=== PATIENT | female | born 1955 | race Caucasian/White ===

== ENCOUNTER 2018-02-07 21:18 | Observation (INO) ==
[2018-02-07] MEDS ORDERED: Nitroglycerin 0.4 MG TAB.SUBL SL PRN (21:45)
--- NOTE | 2018-02-07 21:54 | Emergency Department Note ---
Disposition Clinical Impression: Acute electrocardiogram changes Chest pain Qualifiers: Chest pain type: unspecified Qualified Code(s): R07.9 - Chest pain, unspecified Disposition: Admitted As Inpatient Condition: Undetermined Referrals: Odalis Kim MD [Primary Care Provider] - Forms: ED Satisfaction Letter, Work/School Release Chest Pain HPI - General Chief Complaint: ED General Medical Stated Complaint: "High BP/Headache" Time Seen by Provider: 02/07/18 21:25 Source: patient, family Mode of arrival: ambulatory Limitations: no limitations Vital Signs Reviewed: Yes Nursing Notes Reviewed: Yes - History of Present Illness HPI Narrative: 62-year-old female with history of poorly controlled hypertension, hyperlipidemia, arrives to the emergency department complaining of mild headache , chest pressure and hypertension. The patient states that she had a recent flareup of her irritable bowel syndrome and she states any time this happens she becomes hypertensive and has to come to the hospital to get this addressed. The patient states that she started developing chest discomfort this evening. She decided to come into the emergency department after she developed the chest pressure. Patient does have a mild headache but states this is not uncommon when she does have hypertensive episodes. Patient denies any shortness of breath or any other symptoms associated with it. She is resting comfortably and is neurologically intact in the room on evaluation. She is hypertensive with initial systolic blood pressure in the 200s. She denies any other complaints at this time. Severity scale (1-10): 2 - Related Data Allergies Allergy/AdvReac Type Severity Reaction Status Date / Time azithromycin Allergy Hives Verified 02/07/18 22:37 nitrofurantoin Allergy Hives Verified 02/07/18 22:37 [From Macrobid] beta blockers Allergy Difficulty Uncoded 05/03/16 10:35 Breathing All systems ED: reviewed and negative except as stated. Constitutional: Denies: fever, chills, weakness ENT ED: Denies: congestion Cardiovascular: Reports: chest pain. Denies: dyspnea on exertion, edema, syncope Respiratory: Denies: cough, dyspnea, sputum production Gastrointestinal: Denies: abdominal pain, nausea, vomiting Genitourinary: Denies: urgency, dysuria Musculoskeletal: Denies: back pain, neck pain Integumentary: Denies: rash, abrasion Neurological: Reports: headache. Denies: weakness, numbness, paresthesias, confusion, abnormal gait, vertigo Chest Pain PMH - Past Medical History Medical history: Reports: GERD, hyperlipidemia, hypertension Surgical history: Reports: non-contributory Psychiatric history: Reports: no psych history Prior Cardiac Testing/Procedures: Stress Test - Social History Smoking Status: Never smoker Alcohol use: Reports: none Drug use: Reports: none Physical Exam - General Limitations: no limitations General appearance: alert, in no apparent distress - Head Head exam: atraumatic, normocephalic, normal inspection - Eye Eye exam: Present: normal appearance, PERRL, EOMI - ENT ENT exam: normal exam, normal oropharynx, mucous membranes moist - Neck Neck exam: Present: normal inspection, full ROM, trachea midline - Chest Chest inspection: Present: normal inspection, symmetric chest wall rise - Respiratory Respiratory exam: Present: normal lung sounds bilaterally - Cardiovascular Cardiovascular exam: Present: regular rate, normal rhythm, normal heart sounds - Abdominal Exam Abdominal exam: Present: soft, Non-Tender. Absent: tenderness, distention, guarding, rebound, rigidity - Extremities Exam Extremities exam: Present: normal inspection, full ROM. Absent: tenderness, pedal edema - Neurological Exam Neurological exam: Present: alert, oriented X3 - Skin Skin exam: Present: warm, dry, intact, normal color Course - Reevaluation(s) Reevaluation #1: Patient's received one nitroglycerin and her chest pain is resolved. The patient's systolic blood pressure is 159. The patient however did have some ST depression noted in the lateral leads that is new compared to previous EKG. It is subtle but present. Patient's remaining lab work is pending at this time. Given EKG changes, it was recommended that the patient be admitted to the hospital, patient agrees to plan of care. No further questions or concerns noted. Time: 22:24 Vital Signs Temperature 98.1 F 02/07/18 21:33 Pulse Rate 86 02/07/18 21:33 Respiratory Rate 16 02/07/18 21:33 Blood Pressure 184/115 02/07/18 21:33 O2 Sat by Pulse Oximetry 94 02/07/18 21:33 Temperature 98.1 F 02/07/18 21:37 Pulse Rate 96 02/07/18 22:12 Respiratory Rate 15 02/07/18 22:12 Blood Pressure 159/99 02/07/18 22:12 O2 Sat by Pulse Oximetry 94 02/07/18 22:12 Oxygen Delivery Oxygen Delivery Room Air Chest Pain - MDM Narrative Medical decision making narrative: Patient's lab work did not treats no acute process. The patient's chest pain and hypertension was resolved with nitroglycerin 1. The patient does have some subtle EKG changes with some lateral lead ST depression. She is currently chest pain-free. Troponin is negative. Given the patient's EKG changes combined with the patient's chest pressure and hypertension, we will admit the patient to the hospital for further workup and care. Patient was made aware and agrees to plan. No further questions or concerns noted this time. Patient was administered 325 mg aspirin here in the emergency department. Patient will be admitted to the hospitalist, accepted by - Lab Data Lab results reviewed: Yes I reviewed the patient's lab results. Result diagrams: 02/07/18 21:53 02/07/18 21:53 Lab Results 02/07/18 02/07/18 02/07/18 Range/Units 21:53 21:53 22:01 WBC 8.1 (4.3-11.1) K/mcL RBC 4.30 (3.82-4.97) M/mcL Hgb 13.0 (11.5-15.4) g/dL Hct 40.4 (35.3-44.9) % MCV 94.0 (83.0-100.0) fL MCH 30.2 (28.0-33.3) pg MCHC 32.2 (31.6-35.5) g/dL RDW 13.5 (11.5-14.5) % Plt Count 258 (140-400) K/mcL MPV 9.4 (9.4-12.4) fL Immature Gran % 0.2 (0-4) % Seg Neutrophils % 51.9 % Lymphocytes % 36.9 % Monocytes % 8.1 % Eosinophils % 2.3 % Basophils % 0.6 % Neutrophils # 4.2 (1.6-8.9) K/mcL Lymphocytes # 3.0 (0.6-4.6) K/mcL Monocytes # 0.7 (0.0-1.3) K/mcL Eosinophils # 0.2 (0.0-0.6) K/mcL Basophils # 0.1 (0.0-0.2) K/mcL Sodium 139 (136-145) mEq/L Potassium 3.6 (3.5-5.1) mEq/L Chloride 102 (98-107) mEq/L Carbon Dioxide 29 (23-29) mEq/L BUN 17 (8-23) mg/dL Creatinine 0.97 (0.60-1.20) mg/dL Est GFR ( Amer) > 60 (> 60) Est GFR (Non-Af Amer) 58 L (> 60) BUN/Creatinine Ratio 18 (6-26) Glucose 112 H (70-105) mg/dL Calculated Osmolality 290 (280-300) Calcium 9.7 (8.6-10.3) mg/dL Troponin I < 0.03 (< 0.04) ng/mL Urine Color Yellow (Yellow) Urine Clarity Clear (Clear) Urine pH 7.0 (5.0-8.0) pH Units Ur Specific [place] < 1.005 L (1.010-1.025) Urine Protein Negative (Neg-Trace) mg/dL Urine Glucose (UA) Normal (Normal) mg/dL Urine Ketones Negative (Negative) mg/dL Urine Blood Negative (Negative) Urine Nitrite Negative (Negative) Urine Bilirubin Negative (Negative) Urine Urobilinogen Normal (Normal) mg/dL Ur Leukocyte Esterase Large H (Negative) Urine Microscopic RBC 0-3 (0-3) per hpf Urine Microscopic WBC 30-50 H (0-3) per hpf Ur Squamous Epith Cells Many H (None-Few) per lpf Urine Bacteria None Seen (None-Few) per hpf Hyaline Casts None Seen (None-Few) per lpf Ur Culture Indicated? NO. A (NO) - Radiology Data Radiology results reviewed: Yes I reviewed the patient's radiology results. - EKG Data EKG attestation: Yes I reviewed and interpreted this EKG. EKG results narrative: Heart rate 93 beats for minute. No ST elevation noted. Mild ST depression noted in V4, V5, V6. Flipped T waves noted in V1. Attestation Statement - Attestation Attestation: I examined this patient and my medical decision-making was reviewed with the Resident Physician. I agree with the documented findings, disposition and treatment plan as described except to the extent set forth below. Hypertension , nonspecific chest pain. No evidence of end organ dysfunction at this time however given the onset of her symptoms and failure to have recent stress testing we will proceed with admission for ACS rule out and blood pressure management.
[2018-02-07 22:05] LABS: Basophils # 0.1 K/mcL (0.0-0.2); Basophils % 0.6 %; Eosinophils # 0.2 K/mcL (0.0-0.6); Eosinophils % 2.3 %; Hematocrit 40.4 % (35.3-44.9); Immature Granulocytes % 0.2 % (0-4); Lymphocytes % 36.9 %; Mean Corpuscular HGB Conc 32.2 g/dL (31.6-35.5); Mean Corpuscular Hemoglobin 30.2 pg (28.0-33.3); Mean Platelet Volume 9.4 fL (9.4-12.4); Monocytes # 0.7 K/mcL (0.0-1.3); Monocytes % 8.1 %; Neutrophils # 4.2 K/mcL (1.6-8.9); Platelet Count 258 K/mcL (140-400); Red Cell Distribution Width 13.5 % (11.5-14.5); Segmented Neutrophils % 51.9 %
[2018-02-07 22:11] LABS: Bilirubin,Urine Negative (Negative); Blood,Urine Negative (Negative); Clarity,Urine Clear (Clear); Color,Urine Yellow (Yellow); Glucose,Urine (UA) Normal (Normal); Ketones,Urine Negative (Negative); Leukocyte Esterase,Urine Large (Negative); Nitrite,Urine Negative (Negative); Protein,Urine Negative (Neg-Trace); Specific Gravity,Urine < 1.005 (1.010-1.025); Urobilinogen,Urine Normal (Normal)
[2018-02-07 22:13] LABS: Bacteria,Urine None Seen per hpf (None-Few); Hyaline Casts,Urine None Seen per lpf (None-Few); RBC,Urine 0-3 per hpf (0-3); Squamous Epithelial Cell,Urine Many per lpf (None-Few); WBC,Urine 30-50 per hpf (0-3)
[2018-02-07 22:26] LABS: BUN/Creatinine Ratio 18 (6-26); Blood Urea Nitrogen 17 mg/dL (8-23); Calcium 9.7 mg/dL (8.6-10.3); Carbon Dioxide 29 mEq/L (23-29); Chloride 102 mEq/L (98-107); Glucose 112 mg/dL (70-105); Osmolality,Calculated 290 (280-300); Potassium 3.6 mEq/L (3.5-5.1); Sodium 139 mEq/L (136-145); eGFR For Non-African Americans 58 (> 60)
[2018-02-07 22:27] LABS: Troponin I < 0.03 ng/mL (< 0.04)
[2018-02-07] MEDS ORDERED: Aspirin 325 MG TABLET PO ONE (22:29)
[2018-02-08] MEDS ORDERED: Naloxone 0.4 MG/ML INJ IVP PRN (00:14)
--- NOTE | 2018-02-08 00:32 | Internal Med History&Physical ---
<GarciaCarolineParker C - Last Filed: 02/08/18 01:17> Date of Encounter: 02/08/18 Time of Encounter: 00:24 Internal Medicine - H&P: HPI Chief complaint: Chest Pain Admitted From: Home Plans for Post Hospital Care: Home History of present illness: Ms. Foss is a 62 year old female with a past medical history of gastroesophageal reflux disease, hyperlipidemia, hypertension, irritable bowel syndrome. Her hypertension is moderately well controlled and she has had episodes of hypertensive urgency in the past where she has had to present to the emergency department for treatment. She stated that today she was experiencing headache and chest pressure that caused her to take her blood pressure which she found out was elevated with a systolic in the 200s so she presented to the emergency department. Once in the emergency department she was given 1 dose of aspirin 325 mg and 1 dose of nitroglycerin which did relieve her chest pressure. Apparently her blood pressure did improve without intervention. On my exam patient is asymptomatic and has no complaints, her blood pressure is in the 170s systolic. She denies continued chest pressure or headache. She denies any recent medication changes. She states that she does not smoke and only seldomly drinks alcohol and does not use recreational drugs. Her mother did of myocardial infarction in her 70s, her father did not have cardiovascular disease. Past Med Surg Social Fam HX - Past Medical History Medical history: GERD, hyperlipidemia, hypertension Psychiatric history: no psych history - Past Surgical History Surgical History: non-contributory - Social History Smoking Status: Never smoker Smokeless Tobacco Status: No Alcohol use: none Drug use: none - Family History Mother Living Status: Cause of : [place] Hx Family Cardiac Disorders: Yes Hx Family Endocrine Disorder: Yes (DM) Father Living Status: Cause of : Lung Cancer Hx Family Endocrine Disorder: Yes (DM) Internal Medicine - H&P: Meds Atorvastatin Calcium [Lipitor] 20 mg PO HS 02/07/18 [History] Omeprazole [PriLOSEC] 40 mg PO DAILY 02/07/18 [History] Valsartan [Diovan] 160 mg PO DAILY 02/07/18 [History] hydroCHLOROthiazide [Hydrochlorothiazide] 25 mg PO DAILY 02/07/18 [History] 3 Allergy/AdvReac Type Severity Reaction Status Date / Time azithromycin Allergy Hives Verified 02/07/18 22:37 nitrofurantoin Allergy Hives Verified 02/07/18 22:37 [From Macrobid] beta blockers Allergy Difficulty Uncoded 05/03/16 10:35 Breathing All Systems PM: A 10-system review of systems was performed and is negative for pertinent findings except as documented above in the HPI. - Constitutional Constitutional: no chills, no fever(s), no malaise, no weakness - EENT Eyes: no blurry vision, no seeing flashes - Cardiovascular Cardiovascular ROS IM: no diaphoresis, no dyspnea, no dyspnea on exertion, no edema, no irregular heart rhythm, no lightheadedness, no palpitations, no syncope - Respiratory Respiratory: no cough, no dyspnea, no pain on inspiration - Gastrointestinal Gastrointestinal: no abdominal pain, no vomiting - Genitourinary Genitourinary: no difficulty urinating, no difficulty voiding, no urinary frequency, no urinary hesitancy, no urinary incontinence, no urinary urgency - Musculoskeletal Musculoskeletal ROS IM: no myalgias - Integumentary Integumentary IM: no erythema, no unusual bruising - Neurological Neurological ROS: headache(s), no abnormal movements, no abnormal speech, no focal weakness, no frequent falls - Constitutional Vitals: Temp Pulse Resp BP Pulse Ox 98.1 F 78 13 162/86 97 02/07/18 21:37 02/07/18 23:35 02/07/18 23:35 02/07/18 23:35 02/07/18 23:35 Exam: Patient no acute distress, alert and oriented 3 Cranial nerves II through XII intact Heart in regular rate and rhythm without murmur or gallop There is no reproducible chest pain in the anterior chest wall Lungs clear to auscultation bilaterally without wheeze or rhonchi or rales Abdomen soft and nontender with normal bowel sounds present Bilateral lower extremities nonedematous or erythematous Skin warm and dry Internal Med - H&P Results - Labs CBC & Chem 7: 02/07/18 21:53 02/07/18 21:53 - Assessment and plan (1) Chest pain Current Visit: Yes Status: Acute Assessment and plan: Patient presented with chest pressure and headache associated with elevated blood pressure She has had pisodes of hypertensive urgency in the past with associated cardiac workup Last echocardiogram and exercise stress test in May 2016 were normal Her chest pressure was alleviated with 1 dose of nitroglycerin and her blood pressure improved without intervention EKG in the emergency department showed normal sinus rhythm with subtle ST depression in the lateral leads not present in previous EKG Patient currently asymptomatic and hemodynamically stable Suspect chest pain secondary to demand from hypertensive urgency Plan Admit to OBS for Hypertensive Urgency and ACS rule out Cycle Troponin to rule out ACS Normal stress test and echo within 2 years Outpatient PCP and Cardiology follow up CBC, BMP, Lipids in AM Continuous Cardiac Monitoring Control BP Qualifiers: Chest pain type: unspecified Qualified Code(s): R07.9 - Chest pain, unspecified (2) Hypertensive urgency Current Visit: Yes Status: Acute Assessment and plan: Patient with chronic history of hypertension and several episodes of hypertensive urgency in the past Patient denied any changes to medications or missing doses, she takes valsartan and hydrochlorothiazide at home She apparently presented to the ED with systolic blood pressure in the 200s and associated chest pain Chest pain was relieved with nitroglycerin and blood pressure improved without intervention On my exam blood pressure was in the 170s systolic and patient was asymptomatic and hemodynamically stable CBC and BMP did not indicate any evidence of end organ damage Plan One dose 5mg IVP hydralazine Resume home medications of HCTZ and Diovan in AM Re-evaluate home BP medications to prevent further hypertensive episodes Continue to monitor BP closely Repeat CBC/BMP in AM (3) Hyperlipidemia Current Visit: Yes Status: Acute Assessment and plan: Continue home medication Atorvastatin Check Lipids in AM Qualifiers: Qualified Code(s): E78.5 - Hyperlipidemia, unspecified (4) DVT prophylaxis Current Visit: Yes Status: Acute Assessment and plan: Subcutaneous heparin 5000 units q8hr - Time Spent With Patient Total time spent is greater than 50% in coordination of care (as documented) at patient's floor/unit and/or counseling patient: <Elham Coley - Last Filed: 02/08/18 01:51> Date of Encounter: 02/08/18 Internal Medicine - H&P: HPI History of present illness: Ms. Foss is a 62 year old female All Systems PM: A 10-system review of systems was performed and is negative for pertinent findings except as documented above in the HPI. - Constitutional Vitals: Temp Pulse Resp BP Pulse Ox 98.1 F 75 16 175/85 95 02/08/18 00:54 02/08/18 00:54 02/08/18 00:54 02/08/18 00:54 02/08/18 00:54 Internal Med - H&P Results - Labs CBC & Chem 7: 02/07/18 21:53 02/07/18 21:53 - Assessment and plan (1) Chest pain Current Visit: Yes Status: Acute Qualifiers: Chest pain type: unspecified Qualified Code(s): R07.9 - Chest pain, unspecified (2) Hypertensive urgency Current Visit: Yes Status: Acute (3) Hyperlipidemia Current Visit: Yes Status: Acute Qualifiers: Qualified Code(s): E78.5 - Hyperlipidemia, unspecified (4) DVT prophylaxis Current Visit: Yes Status: Acute - Time Spent With Patient Total time spent is greater than 50% in coordination of care (as documented) at patient's floor/unit and/or counseling patient: - Attending Attestation The patient was seen and examined by me and the case was discussed in detail with the resident and I agree with the assessment and plan as indicated above. Patient is a 62-year-old woman who reports a history of IBS and hypertension which she says is usually well-controlled but has had episodes of significant elevations in the past. She says earlier in the day she he had some chest discomfort and a headache for which reason she took her blood pressure with a systolic in the 160 and later on she checked it again around 8 PM noting it as high as 190. This is brought brought her to the emergency room where she was reportedly found to have a systolic level of 200. Appears her BP improved without antihypertensive intervention as at the time I saw her her systolic was down to 160 without any medication given. She remained Clinically and hemodynamically stable stating that her chest discomfort and headache had resolved. Physical exam remarkable for well-developed woman sitting comfortably in bed in no acute distress with no signs of peripheral edema, no rubs, murmur or gallop on cardiac auscultation; no rales, rhonchi or wheezing on chest auscultation; soft and nontender. Allergies reviewed are grossly unremarkable with negative first troponin. Old records reviewed showed that she had an echo and a stress test done within the last 2 years which were both unremarkable. At this time we can observe her overnight to ensure her BP remains well controlled and that she does not have any chest pain recurrences while obtaining another EKG and troponin level for certainty. If she remains well as she is right now she can be discharged in the morning and scheduled for outpatient follow-up with her PCP and also cardiology.
[2018-02-08 04:14] LABS: Basophils % 0.6 %; Eosinophils # 0.1 K/mcL (0.0-0.6); Eosinophils % 1.3 %; Hematocrit 37.8 % (35.3-44.9); Hemoglobin 12.2 g/dL (11.5-15.4); Immature Granulocytes % 0.1 % (0-4); Lymphocytes % 29.2 %; Mean Corpuscular HGB Conc 32.3 g/dL (31.6-35.5); Mean Corpuscular Hemoglobin 30.3 pg (28.0-33.3); Mean Corpuscular Volume 93.8 fL (83.0-100.0); Mean Platelet Volume 9.6 fL (9.4-12.4); Monocytes # 0.5 K/mcL (0.0-1.3); Monocytes % 6.7 %; Neutrophils # 4.3 K/mcL (1.6-8.9); Platelet Count 241 K/mcL (140-400); Red Blood Count 4.03 M/mcL (3.82-4.97); Red Cell Distribution Width 13.4 % (11.5-14.5); Segmented Neutrophils % 62.1 %
[2018-02-08 04:35] LABS: BUN/Creatinine Ratio 21 (6-26); Blood Urea Nitrogen 17 mg/dL (8-23); Calcium 9.5 mg/dL (8.6-10.3); Carbon Dioxide 30 mEq/L (23-29); Chloride 102 mEq/L (98-107); Cholesterol 170 mg/dL (< 200); Glucose 112 mg/dL (70-105); HDL Cholesterol 43 mg/dL (40-59); LDL Cholesterol,Calculated 102 mg/dL (0-99); Osmolality,Calculated 286 (280-300); Potassium 3.6 mEq/L (3.5-5.1); Sodium 137 mEq/L (136-145); Triglycerides 126 mg/dL (< 150); eGFR For Non-African Americans > 60 (> 60)
[2018-02-08] MEDS: *HR* Heparin 5,000 UNIT/ML VIAL SQ SCH ×3 (06:01→21:17)
[2018-02-08] MEDS: Aspirin 81 MG TAB.CHEW PO SCH (09:11)
[2018-02-08] MEDS: Valsartan 160 MG TABLET PO SCH (09:11)
[2018-02-08] MEDS: hydroCHLOROthiazide 25 MG TABLET PO SCH (09:11)
[2018-02-08] MEDS: Acetaminophen 325 MG TABLET PO PRN ×2 (09:11→19:56)
--- NOTE | 2018-02-08 15:43 | Event Note ---
Date of Encounter: 02/08/18 Time of Encounter: 15:41 Patient was seen and examined earlier in the day by the hospitalist. Currently denies any chest pain or shortness of breath blood pressure is at baseline. I did question the patient about was whether or not she is compliant with her medications she states that she does take her medicines every day. Troponins are negative thus far. We will repeat EKG obtain orthostatics as well as obtain cardiac echo. Continue to monitor blood pressure
[2018-02-09] MEDS: *HR* Heparin 5,000 UNIT/ML VIAL SQ SCH (06:18)
[2018-02-09] MEDS: Valsartan 160 MG TABLET PO SCH (08:36)
[2018-02-09] MEDS: hydroCHLOROthiazide 25 MG TABLET PO SCH (08:36)
[2018-02-09] MEDS: Aspirin 81 MG TAB.CHEW PO SCH (08:36)
[2018-02-09 11:38] VITALS: BP 148/83
--- NOTE | 2018-02-09 11:44 | Discharge Summary ---
- NOTES TO OUTPATIENT PROVIDER Notes to Outpatient Provider: Patient admitted to observation for hypertensive urgency despite compliance with her home medications. There was no significant intervention inpatient and blood pressure returned to baseline. With resumption of home meds. Echocardiogram was unremarkable. No signs of ischemia on EKG and troponin was negative. Patient is symptom-free and was discharged home in stable clinical condition. Follow-up with primary care physician for optimization of blood control. Date of Encounter: 02/09/18 Time of Encounter: 11:42 - Discharge Diagnosis (1) Chest pain Priority: Primary Status: Resolved Qualifiers: Chest pain type: unspecified Qualified Code(s): R07.9 - Chest pain, unspecified (2) Hypertensive urgency Priority: Primary Status: Resolved (3) Hyperlipidemia Priority: Secondary Status: Chronic Qualifiers: Hyperlipidemia type: unspecified Qualified Code(s): E78.5 - Hyperlipidemia , unspecified (4) DVT prophylaxis Priority: Primary Status: Resolved Hospital course: Ms. Foss is a 62 year old female with PMH of GERD, HLD, and HTN Patient presented with chest pressure and headache associated with elevated blood pressure She has had pisodes of hypertensive urgency in the past with associated cardiac workup Last echocardiogram and exercise stress test in May 2016 were normal Her chest pressure was alleviated with 1 dose of nitroglycerin and her blood pressure improved without intervention EKG in the emergency department showed normal sinus rhythm with no evidence of ischemia Patient currently asymptomatic and hemodynamically stable, blood pressure returned to baseline without intervention. She denied any stressors or illicit drug use, or palpitations at that time and she remained asymptomatic throughout hospital stay ECHO done 02/08 was unremarkable Discharged home in clinically and hemodynamically stable state with recommendation to follow up with PCP Discharge discussed with: patient, nurse - Time Spent with Patient Total time spent providing and/or coordinating discharge services: Less than 30 minutes - Discharge Medications Home Medications: Atorvastatin Calcium [Lipitor] 20 mg PO HS 02/07/18 [History] Omeprazole [PriLOSEC] 40 mg PO DAILY 02/07/18 [History] Valsartan [Diovan] 160 mg PO DAILY 02/07/18 [History] hydroCHLOROthiazide [Hydrochlorothiazide] 25 mg PO DAILY 02/07/18 [History] Allergies/Adverse Reactions: 3 Allergy/AdvReac Type Severity Reaction Status Date / Time azithromycin Allergy Hives Verified 02/07/18 22:37 nitrofurantoin Allergy Hives Verified 02/07/18 22:37 [From Macrobid] beta blockers Allergy Difficulty Uncoded 05/03/16 10:35 Breathing Date of admission: 02/07/18 23:35 Primary care physician: Odalis Kim MD Discharging clinician: Mauro Wagner Anticipated date of discharge: 02/09/18 - Constitutional Vitals: Temp Pulse Resp BP Pulse Ox 97.8 F 72 19 148/83 96 02/09/18 11:36 02/09/18 11:36 02/09/18 11:36 02/09/18 11:36 02/09/18 11:36 General appearance: Present: A&O X 3, pleasant, no acute distress Exam: see detailed exam below - Head Head exam: Present: atraumatic, normocephalic - Eye Eye exam: Present: PERRL, conjuntiva pink, sclera anicteric Pupils: Present: PERRL - Neck Neck exam general surgery: Present: supple, trachea midline. Absent: lymphadenopathy - Respiratory Respiratory exam: Present: CTAB. Absent: accessory muscle use, rales, rhonchi, wheezes - Cardiovascular Cardiovascular exam: Present: RRR, +S1, +S2. Absent: diastolic murmur, gallop, rubs, systolic murmur - GI/Abdominal GI/Abdominal exam: Present: normal bowel sounds, soft, no peritoneal signs. Absent: distended, tenderness - Extremities Exam Extremities exam: Present: warm, radial pulses palpable and symmetrical. Absent : calf tenderness, cyanotic, pedal edema - Neurological Exam Neurological exam: Present: CN II-XII intact, oriented X3, no focal deficits. Absent: pronater drift, facial droop, speech deficit - Skin Skin exam: Present: dry, intact - Patient Status Disposition: Home, Self-Care Condition: Good Functional capacity at discharge: independent ambulation Overall status at discharge: patient is back to baseline - Discharge Instructions Follow Up With: Odalis Kim MD [Primary Care Provider] - 02/15/18 11:45 am - Diet and Activity Activity: resume usual activities as tolerated Diet: low fat, low cholesterol, low salt diet
--- NOTE | 2018-02-11 20:50 | Electrocardiograph Report ---
[place] [address] Test Date: 2018-02-07 Pat Name: Loretta Foss Department: [id number] Room: 3B Gender: F Photo Editor: : 1955 Requested By: Luis Manuel Parrish Order Number: [id number] Reading MD: Jose Montilla Measurements Intervals [place] Rate: 93 P: 49 AR: 139 QRS: 75 QRSD: 107 T: 43 QT: 394 QTc: 491 Interpretive Statements Sinus rhythm Borderline prolonged QT interval Electronically Signed On 02-11-2018 20:48:54 EDT by Jose Montilla
--- NOTE | 2018-02-11 21:38 | Electrocardiograph Report ---
[address] [place] [address] Test Date: 2018-02-08 Pat Name: Loretta Foss Department: 113 Room: 3B Gender: F Photographer Still: : 1955 Requested By: Nkechi Meraz Order Number: [id number] Reading MD: Jose Montilla Measurements Intervals [place] Rate: 65 P: 23 NV: 146 QRS: 33 QRSD: 101 T: 35 QT: 406 QTc: 418 Interpretive Statements SINUS RHYTHM MODERATE T-WAVE ABNORMALITY, CONSIDER ANTERIOR ISCHEMIA Electronically Signed On 02-11-2018 21:37:12 EDT by Jose Montilla
== END 2018-02-09 15:15 | disposition home or self-care (01) ==
LOC: EMEROOARM 21:18 → 3BNU 21:18
PROVIDERS: ADMIT Internal Medicine; ATTEND Internal Medicine